=== PATIENT | male | born 1950 | race African-American/Black ===

== ENCOUNTER 2018-03-25 19:12 | Emergency (ER) | payer OTHER, BC ==
[2018-03-25] MEDS ORDERED: ASPIRIN 81 MG TABLET, CHEWABLE PO ONE (19:51)
[2018-03-25] MEDS ORDERED: ONDANSETRON 4 MG TAB.RAPDIS PO ONE (19:58)
--- NOTE | 2018-03-25 19:58 | ER Document Report ---
ED Medical Screen (RME) - General Chief Complaint: Chest Pain Stated Complaint: CHEST PAIN Time Seen by Provider: 03/25/18 19:51 Notes: The patient is a 67-year-old male, past medical history thoracic aortic aneurysm , presents with anterior chest pain and nausea started a few minutes prior to arrival. He was admitted to [facility] last week and diagnosed with the aortic aneurysm. He was told that it was too small for any operation, but they need to keep an eye on it. Patient was visiting his daughter in [place] when the pain started and he took a Nitro. Denies back pain, abdominal pain, numbness, tingling or blurry vision. PE: Actively vomiting in PIT. RRR. Lungs CTAB. Strong radial pulses. I have greeted and performed a rapid initial assessment of this patient. A comprehensive ED assessment and evaluation of the patient, analysis of test results and completion of the medical decision making process will be conducted by additional ED providers. TRAVEL OUTSIDE OF THE [place] IN LAST 30 DAYS: No - Related Data Allergies/Adverse Reactions: No Known Allergies Allergy (Unverified 03/25/18 19:21) Physical Exam - Vital signs Vitals: Temp Pulse Resp BP Pulse Ox 97.8 F 68 16 143/72 H 99 03/25/18 19:27 03/25/18 19:27 03/25/18 19:27 03/25/18 19:27 03/25/18 19:27 Course - Vital Signs Vital signs: Temp Pulse Resp BP Pulse Ox 97.8 F 68 16 143/72 H 99 03/25/18 19:27 03/25/18 19:27 03/25/18 19:27 03/25/18 19:27 03/25/18 19:27
[2018-03-25 20:36] LABS: ABSOLUTE BASOPHILS # (AUTO) 0.1 10^3/uL (0.0-0.2); ABSOLUTE EOSINOPHILS # (AUTO) 0.1 10^3/uL (0.0-0.6); ABSOLUTE LYMPHOCYTES (AUTO) 2.1 10^3/uL (0.5-4.7); ABSOLUTE MONOCYTES (AUTO) 0.8 10^3/uL (0.1-1.4); ABSOLUTE NEUT (AUTO) 7.1 10^3/uL (1.7-8.2); BASOPHILS % (AUTO) 0.5 % (0-2); EOSINOPHILS % (AUTO) 0.9 % (0-6); HEMATOCRIT 44.6 % (37.9-51.0); HEMOGLOBIN 15.9 g/dL (13.5-17.0); LYMPHOCYTES % (AUTO) 20.6 % (13-45); MEAN CORPUSCULAR HEMOGLOBIN 32.9 pg (27.0-33.4); MEAN CORPUSCULAR HGB CONC 35.5 g/dL (32.0-36.0); MEAN CORPUSCULAR VOLUME 93 fl (80-97); MONOCYTES % (AUTO) 7.9 % (3-13); PLATELET COUNT 190 10^3/uL (150-450); RED BLOOD COUNT 4.82 10^6/uL (4.35-5.55); RED CELL DISTRIBUTION WIDTH 13.4 % (11.5-14.0); SEGMENTED NEUTROPHILS % (AUTO) 70.1 % (42-78); TOTAL CELLS COUNTED % (AUTO) 100 %; WHITE BLOOD COUNT 10.1 10^3/uL (4.0-10.5)
[2018-03-25 20:54] LABS: ALANINE AMINOTRANSFERASE 28 U/L (21-72); ALBUMIN 4.3 g/dL (3.5-5.0); ALKALINE PHOSPHATASE 63 U/L (38-126); ANION GAP 11 (5-19); ASPARTATE AMINO TRANSFERASE 21 U/L (17-59); BILIRUBIN,DIRECT 0.3 mg/dL (0.0-0.4); BILIRUBIN,TOTAL 0.6 mg/dL (0.2-1.3); BLOOD UREA NITROGEN 18 mg/dL (7-20); CALCIUM 9.3 mg/dL (8.4-10.2); CARBON DIOXIDE 27 mmol/L (22-30); CHLORIDE 108 mmol/L (98-107); CREATINE KINASE 117 U/L (55-170); GLUCOSE 88 mg/dL (75-110); POTASSIUM 4.1 mmol/L (3.6-5.0); SODIUM 146.3 mmol/L (137-145); TOTAL PROTEIN 7.1 g/dL (6.3-8.2)
[2018-03-25] MEDS ORDERED: MAG HYDROX/AL HYDROX/SIMETH SUSP 30 ML UDCUP PO ONE (20:55)
[2018-03-25] MEDS ORDERED: METOCLOPRAMIDE HCL ORAL SOLN 10 MG/10 ML UDCUP PO ONE (20:55)
[2018-03-25] MEDS ORDERED: LIDOCAINE 2% VISCOUS SOLN 20 ML UDCUP PO ONE (20:55)
[2018-03-25] MEDS ORDERED: NORMAL SALINE 1000 ML 1,000 ML IV ONE (20:56)
--- NOTE | 2018-03-25 21:02 | RADIOLOGY REPORT (SQ) ---
EXAM DESCRIPTION: CHEST SINGLE VIEW COMPLETED DATE/TIME: 03/25/2018 8:29 pm REASON FOR STUDY: chest pain COMPARISON: None. EXAM PARAMETERS: NUMBER OF VIEWS: One view. TECHNIQUE: Single frontal radiographic view of the chest acquired. RADIATION DOSE: NA LIMITATIONS: None. FINDINGS: LUNGS AND PLEURA: No opacities, masses or pneumothorax. No pleural effusion. MEDIASTINUM AND HILAR STRUCTURES: No masses. Contour normal. HEART AND VASCULAR STRUCTURES: Heart normal in size. Normal vasculature. BONES: No acute findings. HARDWARE: None in the chest. OTHER: No other significant finding. IMPRESSION: NO ACUTE RADIOGRAPHIC FINDING IN THE CHEST. TECHNICAL DOCUMENTATION: JOB ID: [id number] [employer]- All Rights Reserved Reading location - IP/workstation name: [email or web address]
[2018-03-25 21:09] LABS: CREATINE KINASE MB 0.66 ng/mL (<4.55)
[2018-03-25 21:10] LABS: TROPONIN I < 0.012 ng/mL
--- NOTE | 2018-03-25 21:38 | EKG REPORT ---
SEVERITY:- ABNORMAL ECG - SINUS RHYTHM PROBABLE ANTEROSEPTAL INFARCT, OLD VERSUS LEAD PLACEMENT : Confirmed by: Josie Casiano MD 25-Mar-2018 21:38:29
--- NOTE | 2018-03-25 22:04 | RADIOLOGY REPORT (SQ) ---
EXAM DESCRIPTION: CTA CHEST COMPLETED DATE/TIME: 03/25/2018 9:51 pm REASON FOR STUDY: cp hx of thoracic aortic aneurysm COMPARISON: Chest x-ray 03/25/2018 TECHNIQUE: CT scan of the chest performed using helical scanning technique with dynamic intravenous contrast injection. Images reviewed with lung, soft tissue and bone windows. Reconstructed coronal and sagittal MPR images reviewed. Additional 3 dimensional post-processing performed to develop Maximal Intensity Projection images (KS P). All images stored on PACS. All CT scanners at this facility use dose modulation, iterative reconstruction, and/or weight based d osing when appropriate to reduce radiation dose to as low as reasonably achievable (ALARA). [facility]: Dose Right [facility]: CareDose [facility]: Dose Right [facility]: Teradose 4D [facility]: Journeys CONTRAST TYPE AND DOSE: contrast/concentration: Isovue 370.00 mg/ml; Total Contrast Delivered: 100.0 ml; Total Saline Delivered: 60.0 ml RENAL FUNCTION: BUN 18 creatinine 1.1 RADIATION DOSE: CT Rad equipment meets quality standard of care and radiation dose reduction techniq ues were employed. CTDIvol: 15.2 mGy. DLP: 526 mGy-cm. . LIMITATIONS: None. FINDINGS: LUNGS AND PLEURA: No masses, infiltrates, or pneumothorax. No pleural effusions or pleura l calcifications. AORTA AND GREAT VESSELS: No aneurysm. No dissection. HEART: No pericardial effusion. No significant coronary artery calcifications. PULMONARY ARTERIES: No emboli visualized in the main pulmonary arteries or the segmental branches. HILAR AND MEDIASTINAL STRUCTURES: No identified masses or abnormal nodes. HARDWARE: None in the chest. UPPER ABDOMEN: No significant findings. Limited exam. THYROID AND OTHER SOFT TISSUES: No masses. No adenopathy. BONES: No acute or significant finding. 3D MIPS: Confirm above findings. OTHER: No other significant finding. IMPRESSION: NORMAL CTA OF THE CHEST. NO PULMONARY EMBOLI. COMMENT: Quality ID # [id number]: Final reports with documentation of one or more dose reduction techniques (e.g., Automated exposure control, adjustment of the mA and/or kV according to patient size, use of iterative reconstruction technique) TECHNICAL DOCUMENTATION: JOB ID: [id number] [employer]- All Rights Reserved Reading location - IP/workstation name: [email or web address]
[2018-03-25 22:45] VITALS: BP 125/83
--- NOTE | 2018-03-26 00:04 | ER Document Report ---
ED General - General Chief Complaint: Chest Pain Stated Complaint: CHEST PAIN Time Seen by Provider: 03/25/18 19:51 TRAVEL OUTSIDE OF THE [place] IN LAST 30 DAYS: No - HPI Patient complains to provider of: Chest pain Notes: Patient coming in for evaluation chest pain. Patient states recently admitted to the hospital at [facility] in [place] told that he had thoracic aortic aneurysm and also had a stress test at that time for chest pain that otherwise return is negative. Patient states chest pain tonight started after increased stress. Patient was given sublingual nitro which did relieve his pain. Patient resting comfortably upon my evaluation denies any recent travel fevers chills patient did have some nausea vomiting in triage. Patient states similar chest pain for when he was admitted to [facility] also states similar circumstances that causes chest pain - Related Data Allergies/Adverse Reactions: No Known Allergies Allergy (Verified 03/25/18 21:11) Past Medical History - Social History Smoking Status: Current Every Day Smoker Family History: Reviewed & Not Pertinent Patient has suicidal ideation: No Patient has homicidal ideation: No Renal/ Medical History: Denies: Hx Peritoneal Dialysis Review of Systems - Review of Systems Constitutional: No symptoms reported EENT: No symptoms reported Cardiovascular: Chest pain Respiratory: No symptoms reported Gastrointestinal: No symptoms reported Genitourinary: No symptoms reported Male Genitourinary: No symptoms reported Musculoskeletal: No symptoms reported Skin: No symptoms reported Hematologic/Lymphatic: No symptoms reported Neurological/Psychological: No symptoms reported -: Yes All other systems reviewed and negative Physical Exam - Vital signs Vitals: Temp Pulse Resp BP Pulse Ox 97.8 F 68 16 143/72 H 99 03/25/18 19:27 03/25/18 19:27 03/25/18 19:27 03/25/18 19:27 03/25/18 19:27 Interpretation: Normal - General General appearance: Appears well, Alert - HEENT Head: Normocephalic, Atraumatic Eyes: Normal Pupils: PERRL - Respiratory Respiratory status: No respiratory distress Chest status: Nontender Breath sounds: Normal Chest palpation: Normal - Cardiovascular Rhythm: Regular Heart sounds: Normal auscultation Murmur: No - Abdominal Inspection: Normal Distension: No distension Bowel sounds: Normal Tenderness: Nontender Organomegaly: No organomegaly - Back Back: Normal, Nontender - Extremities General upper extremity: Normal inspection, Nontender, Normal color, Normal ROM , Normal temperature General lower extremity: Normal inspection, Nontender, Normal color, Normal ROM , Normal temperature, Normal weight bearing. No: Jen's sign - Neurological Neuro grossly intact: Yes Cognition: Normal Orientation: AAOx4 Pierce Coma Scale Eye Opening: Spontaneous Pierce Coma Scale Verbal: Oriented Lucia Coma Scale Motor: Obeys Commands Pierce Coma Scale Total: 15 Speech: Normal Motor strength normal: LUE, RUE, LLE, RLE Sensory: Normal - Psychological Associated symptoms: Normal affect, Normal mood - Skin Skin Temperature: Warm Skin Moisture: Dry Skin Color: Normal Course - Re-evaluation Re-evalutation: 03/26/18 00:59 We did obtain records from [facility] from the patient's previous visit showing a thoracic aortic aneurysm and arch measuring 3.4 cm. RCT at night does not show any aneurysmal dilation. Patient also does not show any signs of PE or any other infectious etiology. Patient did have a stress test and echo performed at that time that all these results were reviewed. Patient EKG or laboratory studies did not show any significant pathology 9. With the patient' s recent extensive workup performed tertiary care facility do believe that the patient is safe to discharge home with follow-up as outpatient provider. - Vital Signs Vital signs: Temp Pulse Resp BP Pulse Ox 97.8 F 68 20 125/83 97 03/26/18 00:13 03/25/18 19:27 03/25/18 22:24 03/25/18 22:24 03/25/18 22:24 - Laboratory Result Diagrams: 03/25/18 20:07 03/25/18 20:07 Laboratory results interpreted by me: 03/25/18 20:07 Sodium 146.3 H Chloride 108 H Discharge - Discharge Clinical Impression: Chest pain Qualifiers: Chest pain type: unspecified Qualified Code(s): R07.9 - Chest pain, unspecified Condition: Good Disposition: HOME, SELF-CARE Instructions: Chest Wall Pain ([facility]), Chest Pain of Unclear Cause ([facility]) Additional Instructions: Your laboratory studies EKG did not show any critical pathology here tonight. The review your laboratory results and recent visits from [facility]. I do believe with your results being negative tonight that she can be discharged home to follow-up with your primary care physician appointments scheduled by [place]. Your CAT scan tonight does not show any acute abnormality in your chest. Return to the if symptoms worsen. Please try to decrease the stress in your social life. We recommend taking Tylenol Motrin for any other pain.
== END 2018-03-26 00:13 | disposition home or self-care (01) ==
LOC: ER 19:12
DX: R07.9 Chest pain, unspecified (principal); R11.2 Nausea with vomiting, unspecified; F17.200 Nicotine dependence, unspecified, uncomplicated
CPT/HCPCS: 93005; 99285; 36415; 82553; 82550; 83690; 85025; 80053; 84484; 71045; 71275; 93010; S0119; J3490; J7030